=== PATIENT | male | born 1985 | race Caucasian/White ===

== ENCOUNTER 2020-10-29 18:32 | Emergency (ER) | payer BC ==
--- NOTE | 2020-10-29 18:46 | EDM.PDOC ---
ED HPI GENERAL MEDICAL PROBLEM - General Chief Complaint: Lower Extremity Injury/Pain Stated Complaint: RIGHT ANKLE INJURY TRIPED OVER A LADDER Time Seen by Provider: 10/29/20 18:39 Source of Information: Reports: Patient, RN Notes Reviewed History Limitations: Reports: No Limitations - History of Present Illness INITIAL COMMENTS - FREE TEXT/NARRATIVE: Patient is a 35-year-old male presenting to the emergency department with complaints of pain and swelling to the lateral aspect of his right ankle after tripping on a ladder earlier today. He has been icing and elevating the extremity. He is able to bear some weight on the extremity but states it is quite uncomfortable. He has taken Tylenol for discomfort. Denies any previous fractures to this extremity. 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 [No Known Home Meds] 10/29/20 [History] Review of Systems - Review of Systems Review Of Systems: Comprehensive ROS is negative, except as noted in HPI. ED EXAM, GENERAL - Physical Exam Exam: See Below Exam Limited By: No Limitations General Appearance: Alert, WD/WN, No Apparent Distress Respiratory/Chest: No Respiratory Distress, Lungs Clear, Normal Breath Sounds, No Accessory Muscle Use, Chest Non-Tender Cardiovascular: Normal Peripheral Pulses, Regular Rate, Rhythm, No Edema, No Gallop, No JVD, No Murmur, No Rub Extremities: Other (significant swelling and tenderness to palpation to the right lateral malleolus. CMS intact distal to the injury.) Neurological: Alert, Oriented, CN II-XII Intact, Normal Cognition, Normal Gait, Normal Reflexes, No Motor/Sensory Deficits Psychiatric: Normal Affect, Normal Mood Course - Vital Signs Last Recorded V/S: Last Vital Signs Temp 98.2 F 10/29/20 18:39 Pulse 83 10/29/20 18:39 Resp 18 10/29/20 18:39 BP 139/97 H 10/29/20 18:39 Pulse Ox 94 L 10/29/20 18:39 - Re-Assessments/Exams Free Text/Narrative Re-Assessment/Exam: Patient is a 35-year-old male presenting to the emergency department with complaints of pain and swelling to his right ankle. States he tripped over a ladder. He has been icing it and took Tylenol but is still experiencing significant pain. On exam, he does have significant swelling over the lateral malleolus. CMS is intact distal to the injury. I have ordered ankle X-rays to be completed. 10/29/20 19:32 On x-ray, there is suspicion of a possible talus fracture. I ordered a CT scan of the foot to confirm this. 10/29/20 21:30 CT of the right lower extremity shows: 1. Comminuted cortical fracture at the medial process of the talus which appears to involve predominantly the cortex and may be related to avulsion. 2. Concern for small avulsion fracture of the lateral process of the talus. 3. Significant soft tissue swelling about the lateral malleolus. Patient has been placed in a custom, posterior, Ortho-Glass splint of the right lower extremity. Is been provided crutches and advised to be nonweightbearing. Referral has been sent to Dr. Carl orthopedist. Discharge instructions as doc umented. Departure - Departure Time of Disposition: 21:24 Disposition: Home, Self-Care 01 Condition: Good Clinical Impression: Fracture, talus closed Qualifiers: Encounter type: initial encounter Talus location: unspecified portion of talus Fracture alignment: nondisplaced Laterality: right Qualified Code(s): S92.101A - Unspecified fracture of right talus, initial encounter for closed fracture - Discharge Information *PRESCRIPTION DRUG MONITORING PROGRAM REVIEWED*: No *COPY OF PRESCRIPTION DRUG MONITORING REPORT IN PATIENT HUBERT: No Instructions: Tibial Fracture, Adult, [id number] Referrals: PCP,None [Primary Care Provider] - Forms: ED Department Discharge Additional Instructions: You were seen in the emergency department today for pain and swelling to your ankle after tripping on a ladder. Recommend cleated x-rays of your foot and ankle as well as a CT scan of your foot and ankle. Results of the work-up show that you have a fracture of your talus which is one of the weightbearing bones in your ankle. You been placed in a splint. This remain in place and be kept clean and dry until you are evaluated by orthopedics. A referral has been sent to Dr. Carl, orthopedist. The number to schedule with him as listed below. Recommend contacting his office tomorrow to set up a follow-up visit. Elevate and ice your extremity intermittently for the next few days. You may use Tylenol and ibuprofen as needed for discomfort. You have been provided with crutches. You should be nonweightbearing on the extremity at all times. Return to ER as needed. Sepsis Event Note (ED) - Evaluation Sepsis Screening Result: No Definite Risk
--- NOTE | 2020-10-29 19:56 | CR ---
Right ankle: 3 views of the right ankle were obtained. Soft tissue swelling is identified. Several small calcifications are seen off the lateral ankle probably due to old injury. Minimal calcification is seen off the medial talus most likely due to old injury. No acute fracture, dislocation or other bony abnormality is appreciated. Impression: 1. Soft tissue swelling. 2. Small soft tissue calcifications which are most likely old. 3. No acute osseous abnormality is appreciated on right ankle exam. Diagnostic code #2
--- NOTE | 2020-10-30 08:44 | CT ---
CT right foot Technique: Multiple axial sections through the right foot were obtained. Reconstructed coronal and sagittal images were obtained. Intravenous contrast was not utilized. Findings: Small calcifications are seen off the medial and lateral talus. Medially the findings are most likely old and laterally there is soft tissue swelling being seen and findings most likely represent a minimal acute cortical avulsion fracture. Small unfused os navicularis is incidentally noted. No acute fracture is appreciated. Joint spaces are fairly well maintained. Impression: 1. Findings most likely due to minimal acute cortical avulsion fracture off the lateral talus. Lateral soft tissue swelling is noted. 2. Findings which are likely due to old injury off the medial talus. 3. No additional abnormality is appreciated. Diagnostic code #3 I agree with preliminary report from [facility], finalized on 10/29/20, 10:14 PM [employer]
== END 2020-10-29 21:32 | disposition home or self-care (01) ==
LOC: JD.ED 18:32
DX: S92.101A Unspecified fracture of right talus, initial encounter for closed fracture (principal); W11.XXXA Fall on and from ladder, initial encounter
CPT/HCPCS: 29515; 73610-26-RT; 73610-RT; 73700-26-RT; 73700-RT; 99283; 99284-25

== ENCOUNTER 2025-02-17 15:18 | Emergency (ER) | payer OTHER, BC ==
[2025-02-17] MEDS ORDERED: Naloxone 0.4 MG/ML SDV IVPUSH PRN (15:26)
[2025-02-17] MEDS: HYDROmorphone 1 MG/ML Syringe IM ONE (15:35)
== END 2025-02-17 16:30 | disposition home or self-care (01) ==
LOC: JD.ED 15:18
DX: S63.257A Unspecified dislocation of left little finger, initial encounter (principal); F17.200 Nicotine dependence, unspecified, uncomplicated; W01.198A Fall on same level from slipping, tripping and stumbling with subsequent striking against other object, initial encounter
CPT/HCPCS: 26770; 73140; 96372; 99283; J1171; 99282